=== PATIENT | male | born 1980 | race Hispanic/Latino ===

== ENCOUNTER 2017-07-22 09:02 | Outpatient (CLI) | payer OTHER ==
[2017-07-22] MEDS ORDERED: PROVENTIL IH ONE (09:20)
== END 2017-07-22 09:03 | disposition home or self-care (01) ==
LOC: PF 09:02
PROVIDERS: ATTEND Internal Medicine
DX: J44.9 Chronic obstructive pulmonary disease, unspecified (principal); J45.909 Unspecified asthma, uncomplicated; E11.9 Type 2 diabetes mellitus without complications; Z87.891 Personal history of nicotine dependence
CPT/HCPCS: 94060; 94640

== ENCOUNTER 2018-02-26 22:27 | Emergency (ER) | payer SELFPAY ==
[2018-02-26] MEDS ORDERED: PROVENTIL IH ONE ×3 (22:30→22:57)
[2018-02-26] MEDS ORDERED: ATROVENT IH ONE ×2 (22:35→22:57)
[2018-02-26] MEDS ORDERED: MAGNESIUM SULFATE 1 GM in NACL 0.9% 50 ML IV ONE (22:56)
--- NOTE | 2018-02-26 23:25 | XRay Report ---
FINAL REPORT PROCEDURE: XR CHEST 1V AP TECHNIQUE: Chest radiograph anteroposterior view. CPT 76390 HISTORY: Shortness of breath COMPARISON: No prior studies are available for comparison. FINDINGS: Heart: Normal. Mediastinum/Vessels: Normal. Lungs/Pleural space: Normal. Bony thorax: No acute osseous abnormality. Life support devices: None. IMPRESSION: No acute cardiopulmonary abnormality.
[2018-02-26 23:27] LABS: Basophils % (Auto) 0.5 % (0.0-1.8); Eosinophils # (Auto) 0.3 K/mm3 (0.0-0.4); Eosinophils % (Auto) 3.1 % (0.0-4.3); Hematocrit 44.1 % (35.5-45.6); Lymphocytes # (Auto) 2.9 K/mm3 (1.2-5.4); Lymphocytes % (Auto) 26.8 % (13.4-35.0); Mean Corpuscular HGB Conc 34 % (32-34); Mean Corpuscular Hemoglobin 30 pg (28-32); Mean Corpuscular Volume 89 fl (84-94); Monocytes # (Auto) 0.7 K/mm3 (0.0-0.8); Monocytes % (Auto) 6.4 % (0.0-7.3); Platelet Count 280 K/mm3 (140-440); Red Blood Count 4.98 M/mm3 (3.65-5.03); Red Cell Distribution Width 13.3 % (13.2-15.2)
[2018-02-26 23:42] LABS: BUN/Creatinine Ratio 10; Blood Urea Nitrogen 9 mg/dL (9-20); Calcium 9.2 mg/dL (8.4-10.2); Hemolysis Index 24
[2018-02-27 00:40] VITALS: BP 127/68
--- NOTE | 2018-02-27 01:01 | Emergency Department Report ---
ED Shortness of Breath HPI - General Chief Complaint: Dyspnea/Respdistress Stated Complaint: SOB Time Seen by Provider: 02/26/18 22:56 Source: patient Mode of arrival: Wheelchair Limitations: No Limitations - History of Present Illness MD Complaint: shortness of breath, "asthma attack" -: Gradual, This afternoon Severity: severe Pain Scale: 2 Quality: other (tightness in the chest) Consistency: constant Improves With: nothing Worsens With: nothing Known History Of: COPD, asthma Context: allergen exposure (pt states that the pollen count being elevated has realy made his breathing worse) Treatments Prior to Arrival: none - Related Data Home Medications Medication Instructions Recorded Confirmed Last Taken Ipratropium/Albuterol Sulfate 1 ampul IH Q4HR PRN 09/01/16 09/01/16 Unknown [Duoneb 0.5 mg-3 mg/3 ml Soln] Umeclidinium Brm/Vilanterol Tr 1 each IH QDAY 09/01/16 09/01/16 Unknown [Anoro Ellipta 62.5-25 Mcg INH] metFORMIN [Glucophage] 500 mg PO BID 09/01/16 09/01/16 Unknown Previous Rx's Medication Instructions Recorded Last Taken Type Albuterol Sulfate [Ventolin HFA] 2 puff IH Q4H PRN #1 hfa.aer.ad 09/01/16 Unknown Rx Azithromycin [Zithromax TAB] 500 mg PO QDAY #3 tablet 09/01/16 Unknown Rx Prednisone [predniSONE 10 mg 10 mg PO .TAPER #1 tab.ds.pk 09/01/16 Unknown Rx (6-Day Pack, 21 Tabs)] ALBUTEROL NEB's [Proventil 0.083% 2.5 mg IH TID PRN #25 nebu 02/27/18 Unknown Rx NEBS] Doxycycline [Vibramycin CAP] 100 mg PO Q12HR #14 capsule 02/27/18 Unknown Rx Fluticasone/Salmeterol [Advair 1 puff IH BID #1 blst.w.dev 02/27/18 Unknown Rx Diskus 100-50 mcg] Prednisone [predniSONE 10 mg 10 mg PO .TAPER #1 tab.ds.pk 02/27/18 Unknown Rx (6-Day Pack, 21 Tabs)] Allergies Allergy/AdvReac Type Severity Reaction Status Date / Time carbinoxamine maleate Allergy Unknown Verified 09/01/16 13:23 [From [facility]] pseudoephedrine HCl Allergy Unknown Verified 09/01/16 13:23 [From [facility]] shellfish derived Allergy Unknown Verified 09/01/16 13:23 ED Review of Systems ROS: Stated complaint: SOB Other details as noted in HPI Comment: All other systems reviewed and negative ED Past Medical Hx - Past Medical History Hx Diabetes: Yes Hx Asthma: Yes Hx COPD: Yes - Surgical History Hx Appendectomy: Yes - Social History Smoking Status: Former Smoker Substance Use Type: None - Medications Home Medications: Home Medications Medication Instructions Recorded Confirmed Last Taken Type Albuterol Sulfate [Ventolin HFA] 2 puff IH Q4H PRN #1 hfa.aer.ad 09/01/16 Unknown Rx Azithromycin [Zithromax TAB] 500 mg PO QDAY #3 tablet 09/01/16 Unknown Rx Ipratropium/Albuterol Sulfate 1 ampul IH Q4HR PRN 09/01/16 09/01/16 Unknown History [Duoneb 0.5 mg-3 mg/3 ml Soln] Prednisone [predniSONE 10 mg 10 mg PO .TAPER #1 tab.ds.pk 09/01/16 Unknown Rx (6-Day Pack, 21 Tabs)] Umeclidinium Brm/Vilanterol Tr 1 each IH QDAY 09/01/16 09/01/16 Unknown History [Anoro Ellipta 62.5-25 Mcg INH] metFORMIN [Glucophage] 500 mg PO BID 09/01/16 09/01/16 Unknown History ALBUTEROL NEB's [Proventil 0.083% 2.5 mg IH TID PRN #25 nebu 02/27/18 Unknown Rx NEBS] Doxycycline [Vibramycin CAP] 100 mg PO Q12HR #14 capsule 02/27/18 Unknown Rx Fluticasone/Salmeterol [Advair 1 puff IH BID #1 blst.w.dev 02/27/18 Unknown Rx Diskus 100-50 mcg] Prednisone [predniSONE 10 mg 10 mg PO .TAPER #1 tab.ds.pk 02/27/18 Unknown Rx (6-Day Pack, 21 Tabs)] ED Physical Exam - General Limitations: No Limitations General appearance: alert, anxious - Head Head exam: Present: atraumatic, normocephalic - Eye Eye exam: Present: normal appearance - ENT ENT exam: Present: mucous membranes moist - Neck Neck exam: Present: normal inspection - Respiratory Respiratory exam: Present: respiratory distress, wheezes. Absent: rales, rhonchi, stridor - Cardiovascular Cardiovascular Exam: Present: regular rate, normal rhythm, tachycardia. Absent : systolic murmur, diastolic murmur, rubs, gallop - GI/Abdominal GI/Abdominal exam: Present: soft, normal bowel sounds. Absent: distended, tenderness, guarding, rebound - Rectal Rectal exam: Present: deferred - Extremities Exam Extremities exam: Present: normal inspection - Back Exam Back exam: Present: normal inspection - Neurological Exam Neurological exam: Present: alert, oriented X3 - Psychiatric Psychiatric exam: Present: normal affect, normal mood - Skin Skin exam: Present: warm, dry, intact, normal color. Absent: rash ED Course Vital Signs 02/26/18 02/26/18 02/26/18 22:27 22:41 22:55 Temperature 98.7 F Pulse Rate 124 H 109 H Pulse Rate [ 108 H Anterior Bilateral Throughout] Respiratory 38 H 18 Rate Respiratory 28 H Rate [Anterior Bilateral Throughout] Blood Pressure 147/102 Blood Pressure [Left] O2 Sat by Pulse 92 98 Oximetry 02/26/18 02/26/18 02/27/18 23:15 23:40 00:35 Temperature Pulse Rate 79 Pulse Rate [ 119 H Anterior Bilateral Throughout] Respiratory 20 18 Rate Respiratory 20 Rate [Anterior Bilateral Throughout] Blood Pressure Blood Pressure [Left] O2 Sat by Pulse 100 94 Oximetry 02/27/18 00:39 Temperature 98 F Pulse Rate 96 H Pulse Rate [ Anterior Bilateral Throughout] Respiratory 18 Rate Respiratory Rate [Anterior Bilateral Throughout] Blood Pressure Blood Pressure 127/68 [Left] O2 Sat by Pulse 95 Oximetry ED Medical Decision Making - Lab Data Result diagrams: 02/26/18 23:16 02/26/18 23:16 - EKG Data -: EKG Interpreted by Or - EKG Data Interpretation: other (EKG shows a sinus tachycardia 104 and normal axis normal intervals no ST segment changes time interpretations 4825) - Radiology Data Radiology results: report reviewed No acute process the chest x-ray - Medical Decision Making Patient is a 37-year-old male who is presenting with asthma symptoms. Patient on arrival was given an hour-long nebulizer treatment with BiPAP. Patient did turn around dramatically. Patient was taken off of BiPAP and oxygen and is maintaining O2 sat of 94%. Patient does still have a slight wheeze however he states he always wheezes and he feels as though he is back at baseline. Patient is talking in full sentences and does not appear to be in any distress at the time of discharge. Critical care attestation.: If time is entered above; I have spent that time in minutes in the direct care of this critically ill patient, excluding procedure time. ED Disposition Clinical Impression: COPD with exacerbation Disposition: TO HOME OR SELFCARE Is pt being admited?: No Does the pt Need Aspirin: No Condition: Stable Instructions: Chronic Obstructive Pulmonary Disease (ED) Prescriptions: ALBUTEROL NEB's [Proventil 0.083% NEBS] 2.5 mg IH TID PRN #25 nebu PRN Reason: Wheezing Doxycycline [Vibramycin CAP] 100 mg PO Q12HR #14 capsule Fluticasone/Salmeterol [Advair Diskus 100-50 mcg] 1 puff IH BID #1 blst.w.dev Prednisone [predniSONE 10 mg (6-Day Pack, 21 Tabs)] 10 mg PO .TAPER #1 tab.ds.pk Referrals: KYREE BAER MD [Staff Physician] - 3-5 Days Time of Disposition: :
== END 2018-02-27 01:38 | disposition home or self-care (01) ==
LOC: ED 22:27
DX: J44.1 Chronic obstructive pulmonary disease with (acute) exacerbation (principal); E11.9 Type 2 diabetes mellitus without complications; Z87.891 Personal history of nicotine dependence
CPT/HCPCS: 36415; 71045; 80048; 85025; 93005; 93010; 94644; 96365; 96375; 99285; J2930; J3475

== ENCOUNTER 2018-04-24 12:30 | Emergency (ER) | payer OTHER ==
[2018-04-24 13:13] LABS: Basophils # (Auto) 0.1 K/mm3 (0.0-0.1); Basophils % (Auto) 0.4 % (0.0-1.8); Eosinophils # (Auto) 0.5 K/mm3 (0.0-0.4); Eosinophils % (Auto) 4.3 % (0.0-4.3); Hematocrit 47.8 % (35.5-45.6); Hemoglobin 15.6 gm/dl (11.8-15.2); Lymphocytes # (Auto) 2.4 K/mm3 (1.2-5.4); Lymphocytes % (Auto) 20.6 % (13.4-35.0); Mean Corpuscular HGB Conc 33 % (32-34); Mean Corpuscular Hemoglobin 29 pg (28-32); Mean Corpuscular Volume 87 fl (84-94); Monocytes # (Auto) 0.8 K/mm3 (0.0-0.8); Monocytes % (Auto) 7.1 % (0.0-7.3); Platelet Count 279 K/mm3 (140-440); Red Blood Count 5.47 M/mm3 (3.65-5.03); Red Cell Distribution Width 13.5 % (13.2-15.2)
[2018-04-24 13:19] LABS: BUN/Creatinine Ratio 11; Blood Urea Nitrogen 9 mg/dL (9-20); Calcium 9.6 mg/dL (8.4-10.2); Hemolysis Index 10
[2018-04-24] MEDS ORDERED: DELTASONE PO ONE (14:33)
[2018-04-24] MEDS ORDERED: NACL 0.9% 1000 ML 1,000 ML IV ONE (14:33)
[2018-04-24] MEDS ORDERED: DUONEB *Not for PRN Use IH ONE ×3 (14:33→18:03)
--- NOTE | 2018-04-24 14:33 | Emergency Department Report ---
ED Shortness of Breath HPI - General Chief Complaint: Dyspnea/Respdistress Stated Complaint: DIFFICULTY BREATHING Time Seen by Provider: 04/24/18 14:17 Source: patient Mode of arrival: Ambulatory Limitations: No Limitations - History of Present Illness Initial Comments: History of COPD ran out of his meds for 3 days with worsening shortness of breath no chest pain no fever no productive sputum. States that he can antibiotics for a refill on my minutes with steroids no chest pain or swelling no headache no neck pain no stiff neck no fever no tearing pain to the back MD Complaint: "asthma attack" -: days(s) Improves With: nothing Worsens With: nothing Associated Symptoms: denies other symptoms Treatments Prior to Arrival: bronchodilator - Related Data Home Medications Medication Instructions Recorded Confirmed Last Taken Ipratropium/Albuterol Sulfate 1 ampul IH Q4HR PRN 09/01/16 09/01/16 Unknown [Duoneb 0.5 mg-3 mg/3 ml Soln] Umeclidinium Brm/Vilanterol Tr 1 each IH QDAY 09/01/16 09/01/16 Unknown [Anoro Ellipta 62.5-25 Mcg INH] metFORMIN [Glucophage] 500 mg PO BID 09/01/16 09/01/16 Unknown Previous Rx's Medication Instructions Recorded Last Taken Type Albuterol Sulfate [Ventolin HFA] 2 puff IH Q4H PRN #1 hfa.aer.ad 09/01/16 Unknown Rx Azithromycin [Zithromax TAB] 500 mg PO QDAY #3 tablet 09/01/16 Unknown Rx Prednisone [predniSONE 10 mg 10 mg PO .TAPER #1 tab.ds.pk 09/01/16 Unknown Rx (6-Day Pack, 21 Tabs)] Fluticasone/Salmeterol [Advair 1 puff IH BID #1 blst.w.dev 02/27/18 Unknown Rx Diskus 100-50 mcg] ALBUTEROL NEB's [Proventil 0.083% 2.5 mg IH TID PRN #25 nebu 04/24/18 Unknown Rx NEBS] Doxycycline [Vibramycin CAP] 100 mg PO Q12HR #14 capsule 04/24/18 Unknown Rx Prednisone [predniSONE 10 mg 10 mg PO .TAPER #1 tab.ds.pk 04/24/18 Unknown Rx (6-Day Pack, 21 Tabs)] Allergies Allergy/AdvReac Type Severity Reaction Status Date / Time carbinoxamine maleate Allergy Unknown Verified 09/01/16 13:23 [From [facility]] pseudoephedrine HCl Allergy Unknown Verified 09/01/16 13:23 [From [facility]] shellfish derived Allergy Unknown Verified 09/01/16 13:23 ED Review of Systems ROS: Stated complaint: DIFFICULTY BREATHING Other details as noted in HPI Comment: All other systems reviewed and negative Constitutional: denies: diaphoresis, fever, malaise Eyes: denies: eye discharge, vision change ENT: denies: dental pain, hearing loss, epistaxis Respiratory: shortness of breath, wheezing. denies: cough, orthopnea, SOB with exertion, SOB at rest, stridor Cardiovascular: denies: chest pain, palpitations, dyspnea on exertion, orthopnea , edema, syncope, paroxysmal nocturnal dyspnea Endocrine: denies: excessive sweating Gastrointestinal: denies: abdominal pain, nausea, vomiting, diarrhea, constipation, hematemesis, melena, hematochezia Neurological: denies: headache, weakness, numbness, paresthesias, confusion, abnormal gait, vertigo ED Past Medical Hx - Past Medical History Previous Medical History?: Yes Hx Diabetes: Yes Hx Asthma: Yes Hx COPD: Yes - Surgical History Past Surgical History?: Yes Hx Appendectomy: Yes - Social History Smoking Status: Former Smoker Substance Use Type: Prescribed - Medications Home Medications: Home Medications Medication Instructions Recorded Confirmed Last Taken Type Albuterol Sulfate [Ventolin HFA] 2 puff IH Q4H PRN #1 hfa.aer.ad 09/01/16 Unknown Rx Azithromycin [Zithromax TAB] 500 mg PO QDAY #3 tablet 09/01/16 Unknown Rx Ipratropium/Albuterol Sulfate 1 ampul IH Q4HR PRN 09/01/16 09/01/16 Unknown History [Duoneb 0.5 mg-3 mg/3 ml Soln] Prednisone [predniSONE 10 mg 10 mg PO .TAPER #1 tab.ds.pk 09/01/16 Unknown Rx (6-Day Pack, 21 Tabs)] Umeclidinium Brm/Vilanterol Tr 1 each IH QDAY 09/01/16 09/01/16 Unknown History [Anoro Ellipta 62.5-25 Mcg INH] metFORMIN [Glucophage] 500 mg PO BID 10/02/16 10/02/16 Unknown History Fluticasone/Salmeterol [Advair 1 puff IH BID #1 blst.w.dev 02/27/18 Unknown Rx Diskus 100-50 mcg] ALBUTEROL NEB's [Proventil 0.083% 2.5 mg IH TID PRN #25 nebu 04/24/18 Unknown Rx NEBS] Doxycycline [Vibramycin CAP] 100 mg PO Q12HR #14 capsule 04/24/18 Unknown Rx Prednisone [predniSONE 10 mg 10 mg PO .TAPER #1 tab.ds.pk 04/24/18 Unknown Rx (6-Day Pack, 21 Tabs)] ED Physical Exam - General Limitations: No Limitations General appearance: alert, in no apparent distress, anxious - Head Head exam: Present: atraumatic, normocephalic - Eye Eye exam: Present: PERRL, EOMI - ENT ENT exam: Present: normal exam, normal orophraynx - Neck Neck exam: Present: normal inspection. Absent: tenderness, meningismus - Respiratory Respiratory exam: Present: other (mild and expiratory wheeze without distress). Absent: respiratory distress, decreased breath sounds - Cardiovascular Cardiovascular Exam: Present: regular rate, normal rhythm - GI/Abdominal GI/Abdominal exam: Present: soft. Absent: distended, tenderness, guarding, rebound, rigid, mass, pulsatile mass - Extremities Exam Extremities exam: Present: normal inspection, normal capillary refill. Absent: pedal edema, joint swelling, calf tenderness - Back Exam Back exam: Present: normal inspection. Absent: CVA tenderness (L), muscle spasm , paraspinal tenderness, vertebral tenderness - Neurological Exam Neurological exam: Present: alert, oriented X3, CN II-XII intact. Absent: motor sensory deficit - Skin Skin exam: Absent: cyanosis, diaphoretic, erythema, urticaria, vesicles ED Course Vital Signs 04/24/18 04/24/18 12:32 16:23 Temperature 98.6 F Pulse Rate 122 H 88 Respiratory 22 22 Rate Blood Pressure 160/84 Blood Pressure 132/87 [Right] O2 Sat by Pulse 94 Oximetry ED Medical Decision Making - Lab Data Result diagrams: 04/24/18 12:58 04/24/18 12:58 - EKG Data -: EKG Interpreted by Me EKG shows normal: sinus rhythm - EKG Data Interpretation: other (no acute ischemic change) - Radiology Data Radiology results: image reviewed - Medical Decision Making Chest x-ray is negative EKG shows no acute ischemic change trop was negative at 2 days of symptoms this does appear to be COPD exacerbation we will refill his medicine and we will go ahead and add antibiotics he will need to see his regular doctor in 2 days or return if worse, the vital signs are stable patient is improved Critical care attestation.: If time is entered above; I have spent that time in minutes in the direct care of this critically ill patient, excluding procedure time. ED Disposition Clinical Impression: COPD exacerbation Disposition: DC- TO HOME OR SELFCARE Is pt being admited?: No Condition: Stable Instructions: Chronic Obstructive Pulmonary Disease (ED) Additional Instructions: Return if new or alarming alarming symptoms see her doctor take her medicine or call 911 Prescriptions: ALBUTEROL NEB's [Proventil 0.083% NEBS] 2.5 mg IH TID PRN #25 nebu PRN Reason: Wheezing Doxycycline [Vibramycin CAP] 100 mg PO Q12HR #14 capsule Prednisone [predniSONE 10 mg (6-Day Pack, 21 Tabs)] 10 mg PO .TAPER #1 tab.ds.pk Time of Disposition: 19:25
[2018-04-24 19:25] VITALS: BP 137/77
== END 2018-04-24 20:00 | disposition home or self-care (01) ==
LOC: ED 12:30
DX: J44.1 Chronic obstructive pulmonary disease with (acute) exacerbation (principal); E11.9 Type 2 diabetes mellitus without complications
CPT/HCPCS: 36415; 71046; 80048; 84484; 85025; 93005; 93010; 96360; 99283; J7030; J7512

== ENCOUNTER → 2021-08-10 | Outpatient (CLI) | payer MEDICARE | END | disposition home or self-care (01) | LOC: SLR 11:00 | PROVIDERS: ATTEND Internal Medicine | DX: G47.33 Obstructive sleep apnea (adult) (pediatric) (principal); R40.0 Somnolence; I10 Essential (primary) hypertension; J44.9 Chronic obstructive pulmonary disease, unspecified; E66.9 Obesity, unspecified | CPT/HCPCS: G0399 ==